=== PATIENT | female | born 1940 | race Caucasian/White ===

== ENCOUNTER 2018-06-09 13:54 | Emergency (ER) | payer MEDICARE, OTHER ==
[2018-06-09 14:02] VITALS: BP 120/57
--- NOTE | 2018-06-09 15:04 | ER Document Report ---
ED General - General Chief Complaint: Breathing Difficulty Stated Complaint: DIFFICULTY BREATHING Time Seen by Provider: 06/09/18 14:21 Notes: Patient is a 77-year-old female with COPD that presents to the emergency department for chief complaint of need for CT of the chest. Patient states that she was recently diagnosed with pneumonia and placed on Levaquin, by urgent care, had repeat chest x-ray a week later, and was told that she will need a CT of the chest, before seeing her scheduled pulmonology appointment, that is new for her. She was told there might be nodules or signs of cancer on her last chest x-ray and they advised getting a CT scan she was going to do this in [place], but decided to come to this emergency department to have this performed. She did not schedule an outpatient appointment. She denies having any chest pain, fevers, chills, nausea, vomiting or abdominal pain. States that her breathing has been improving since being treated for her pneumonia. Past Medical History: COPD Past Surgical History: Denies surgical history Social History: Admits to smoking cigarettes daily, denies alcohol or illicit drug use. Family History: Reviewed and noncontributory for presenting illness Allergies: Reviewed, see documented allergy list. REVIEW OF SYSTEMS: Other than noted above, the 12 point review of systems was reviewed with the patient and were negative, all pertinent findings are included in the HPI. PHYSICAL EXAMINATION: Vital signs reviewed, nursing noted reviewed. GENERAL: Elderly female, no acute distress HEAD: Atraumatic, normocephalic. EYES: Eyes appear normal, extraocular movements intact, sclera anicteric, conjunctiva are normal. ENT: nares patent, oropharynx clear without exudates. Moist mucous membranes. NECK: Normal range of motion, supple without lymphadenopathy LUNGS: Breath sounds clear to auscultation bilaterally and equal. No wheezes rales or rhonchi. HEART: Regular rate and rhythm without murmurs ABDOMEN: Soft, nontender, normoactive bowel sounds. No rebound, guarding, or rigidity. No masses appreciated. EXTREMITIES: Nontender, good range of motion, no pitting or edema. NEUROLOGICAL: No focal neurological deficits. Moves all extremities spontaneously Motor and sensory grossly intact on exam. PSYCH: Normal mood, normal affect. SKIN: Warm, Dry, normal turgor, no rashes or lesions noted on exposed skin TRAVEL OUTSIDE OF THE [place] IN LAST 30 DAYS: No - Related Data Allergies/Adverse Reactions: No Known Allergies Allergy (Verified 06/09/18 13:55) Past Medical History - Social History Smoking Status: Current Every Day Smoker Chew tobacco use (# tins/day): No Frequency of alcohol use: Social Drug Abuse: None Family History: Reviewed & Not Pertinent Patient has suicidal ideation: No Patient has homicidal ideation: No Renal/ Medical History: Denies: Hx Peritoneal Dialysis Physical Exam - Vital signs Vitals: Temp Pulse Resp BP Pulse Ox 97.6 F 105 H 20 120/57 L 96 06/09/18 14:06/09/18 14:06/09/18 14:06/09/18 14:01 06/09/18 14:01 Course - Re-evaluation Re-evalutation: Patient seen and examined, vital signs reviewed, patient vital signs are stable, not hypoxic on her baseline 2 L of oxygen, and was not in any respiratory distress, did obtain CT imaging of the chest, the demonstrated some pulmonary nodules, as well as a pneumonia, that the patient is aware of, she is currently on antibiotics, and has a scheduled appointment with the field foreman next week, patient given a copy of her CT scan, and results were discussed with her, she was agreeable with plan of care and discharged home. - Vital Signs Vital signs: Temp Pulse Resp BP Pulse Ox 97.6 F 105 H 20 120/57 L 96 06/09/18 14:01 06/09/18 14:01 06/09/18 14:06/09/18 14:01 06/09/18 14:01 Discharge - Discharge Clinical Impression: Pulmonary nodules Condition: Stable Disposition: HOME, SELF-CARE Additional Instructions: Your CT scan today demonstrated pulmonary nodules, please follow-up with the field foreman that she was scheduled to see on the , please take the CD of the CAT scan with you. Please continue to take the antibiotics as previously prescribed for the pneumonia, this was seen on your CT scan as well. If you have any further concerns, or difficulty breathing, or worsening of your symptoms, do not hesitate to return to the emergency department. Referrals: LAMBERTO WHEATLEY MD [ACTIVE STAFF] - Follow up in 3-5 days (or your primary care. )
--- NOTE | 2018-06-09 15:28 | RADIOLOGY REPORT (SQ) ---
EXAM DESCRIPTION: CT CHEST WITHOUT COMPLETED DATE/TIME: 06/09/2018 3:14 pm REASON FOR STUDY: cough, lesions on cxr COMPARISON: None. TECHNIQUE: CT scan performed of the chest without intravenous contrast. Images reviewed with lung, soft tissue and bone windows. Reconstructed coronal and sagittal MPR images reviewed. All images st ored on PACS. All CT scanners at this facility use dose modulation, iterative reconstruction, and/or weight based d osing when appropriate to reduce radiation dose to as low as reasonably achievable (ALARA). [facility]: Dose Right [facility]: CareDose [facility]: Dose Right [facility]: Teradose 4D [facility]: Epuls RADIATION DOSE: CT Rad equipment meets quality standard of care and radiation dose reduction techniq ues were employed. CTDIvol: 7.2 mGy. DLP: 269 mGy-cm. mGy. LIMITATIONS: No technical limitations. FINDINGS: LUNGS AND PLEURA: Extensive centrilobular and paraseptal emphysema. Scattered nodules wit h the largest 1.6 cm left upper lobe. Subsegmental consolidation left lower lobe with associated bro nchiectasis. HILAR AND MEDIASTINAL STRUCTURES: No identified masses or abnormal nodes. No obvious aneurysm. HEART AND VASCULAR STRUCTURES: Small pericardial effusion. UPPER ABDOMEN: No significant findings. Limited exam. THYROID AND OTHER SOFT TISSUES: No masses. No adenopathy. BONES: Nothing acute. HARDWARE: None in the chest. OTHER: No other significant findings. IMPRESSION: COPD. Pulmonary nodules. Possible superimposed pneumonia left lower lobe. TECHNICAL DOCUMENTATION: JOB ID: [id number] Quality ID # [id number]: Final reports with documentation of one or more dose reduction techniques (e.g., Au tomated exposure control, adjustment of the mA and/or kV according to patient size, use of iterative reconstruction technique) 2010 [employer]- All Rights Reserved Reading location - IP/workstation name: [email or web address]
== END 2018-06-09 16:16 | disposition home or self-care (01) ==
LOC: ER 13:54
DX: R91.8 Other nonspecific abnormal finding of lung field (principal); J44.9 Chronic obstructive pulmonary disease, unspecified; R06.02 Shortness of breath; F17.210 Nicotine dependence, cigarettes, uncomplicated
CPT/HCPCS: 71250; 99282